=== PATIENT | male | born 1930 | race Caucasian/White ===

== ENCOUNTER 2016-09-01 19:00 | Inpatient (IN) | payer MEDICARE, BC ==
[2016-09-01 19:00] VITALS: BMI 28.2
--- NOTE | 2016-09-01 20:54 | ED PDOC ---
HPI: General Adult Time Seen by Provider: 09/01/16 19:00 Chief Complaint (Nursing): Weakness/Neurological Deficit Chief Complaint (Provider): Tachycardia/Weakness History Per: Family (patient's ) History/Exam Limitations: no limitations Additional Complaint(s): 19:43 Pedrito Byrnes is an 85 year old cigar-smoking male with a history of CHF, diabetes, atrial fibrillation, pedal edema, hypertension, CAD, and a blood clot on his lung, along with a surgical history of throat surgery, double hernia, double hip replacements, and a knee replacement, that is accompanied by his , and presents to the ED after becoming tachycardic earlier today at a rehabilitation facility. He was given 4 baby aspirin, but there was no change in his state, and so he was brought to the ED. Patient's also states that he began to have a cough around 10 days ago, and was prescribed antibiotics for it. However, the patient is also on "water pills," because his body is "filled with fluids," and the combination of the antibiotics with his previous medications caused both of his legs to become extremely swollen, and he has since developed blisters on his legs that are now in the process of healing. He has been unable to put any weight on his feet, and has not been eating for two days. Patient also takes medication for his low blood pressure. pt also has decreased apetitei the last few days. PMD: Yevgeniy Lora I Past Medical History Reviewed: Historical Data, Nursing Documentation, Vital Signs Vital Signs: Last Vital Signs Temp 97.9 F 09/03/16 16:49 Pulse 72 09/03/16 16:49 Resp 20 09/03/16 16:49 BP 94/59 L 09/03/16 16:49 Pulse Ox 95 09/03/16 18:27 - Medical History PMH: Arthritis, Atrial Fibrillation, Benign Prostatic Hyperplasia, CHF, COPD, Diabetes (type II), HTN, Peripheral Edema Denies: HIV, Kidney Stones, Chronic Kidney Disease - Surgical History Surgical History: Hernia Repair - Family History Family History: States: Unknown Family Hx - Home Medications Home Medications: Ambulatory Orders Medication Instructions Recorded Acetaminophen [Tylenol 325mg tab] 650 mg PO Q4 PRN 09/02/16 Albuterol/Ipratropium [Duoneb 3 3 ml INH QID 09/02/16 mg/0.5 mg (3 ml) UD] Bisacodyl [Dulcolax] 10 mg ID Q72 PRN 09/02/16 Ergocalciferol (Vitamin D2) 50,000 units PO QWK 09/02/16 [Vitamin D2] Finasteride [Proscar] 5 mg PO DAILY 09/02/16 Furosemide [Lasix] 20 mg PO DAILY 09/02/16 Magnesium Hydroxide [Milk Of 30 ml PO HS PRN 09/02/16 Magnesia] Metoprolol Tartrate [Lopressor] 12.5 mg PO Q12 09/02/16 Midodrine [Proamatine] 2.5 mg PO TID 09/02/16 Pantoprazole Sodium [Protonix] 40 mg PO DAILY 09/02/16 SITagliptin [Januvia] 50 mg PO DAILY 09/02/16 Sennosides [Senna] 17.2 mg PO HS 09/02/16 Sucralfate [Carafate Oral Susp] 10 ml PO DAILY 09/02/16 Tamsulosin [Flomax] 0.4 mg PO HS 09/02/16 - Allergies Allergies/Adverse Reactions: Allergies Allergy/AdvReac Type Severity Reaction Status Date / Time No Known Allergies Allergy Verified 07/26/16 16:50 Review of Systems Constitutional: Positive for: Weakness Cardiovascular: Positive for: Edema (bilateral pedal edema), Other (tachycardia , reported HR of 153 BPM this morning) Respiratory: Positive for: Cough (x10 days) Skin: Positive for: Other (blisters on lower legs bilaterally) Physical Exam - Reviewed Nursing Documentation Reviewed: Yes Vital Signs Reviewed: Yes - Physical Exam Appears: Positive for: Non-toxic, Uncomfortable Head Exam: Positive for: ATRAUMATIC, NORMOCEPHALIC Skin: Positive for: Normal Color, Warm, Dry Cardiovascular/Chest: Positive for: Tachycardia Respiratory: Positive for: Decreased Breath Sounds Gastrointestinal/Abdominal: Positive for: Soft. Negative for: Tenderness Extremity: Positive for: Pedal Edema (bilaterally), Other (one nickel sized blister on lower left leg, has yellowish discharge; two blisters on lower right leg, both slightly yellowish discharge; left arm is wet to the touch) Neurologic/Psych: Positive for: Alert, Oriented Comments: -Skin: Stage 1 redness sacral area ,and open excoriation around the groin - Laboratory Results Result Diagrams: 09/01/16 21:00 09/01/16 21:00 - ECG O2 Sat by Pulse Oximetry: 95 (RA) Pulse Ox Interpretation: Normal Medical Decision Making Medical Decision Makin:41 Initial Impression: rapid atrial fibrillation, decrease apetite Initial Plan: * CBC * CMP * BNP * PT/INR * Troponin * Reevaluation 22:16 Evaluated labs, troponin is elevated, bnp elevated. Spoke to PMD Dr. Lora, agreed to have patient admitted to hospital under his care. will consult pts green lumber grader Dr. Gomes. Clinical Impression: Rapid Atrial Fibrillation however blood pressure borderline and pulse has come down to low 100s on its own. therefore will hold off on cardizem. called dR Gomes twice. no response. 02:34 Podiatry consult ordered, will see pt in the morning. 02:42 CXR shows improvement compared to prior imaging done on 08/14/2016 explained to pts daughter the situation and plan. answered all her questions. Scribe Attestation: Documented by Ronel Medina, acting as a scribe for Elisabet Dawson MD. Provider Scribe Attestation: All medical record entries made by the Scribe were at my direction and personally dictated by me. I have reviewed the chart and agree that the record accurately reflects my personal performance of the history, physical exam, medical decision making, and the department course for this patient. I have also personally directed, reviewed, and agree with the discharge instructions and disposition. Disposition - Clinical Impression Clinical Impression: Rapid atrial fibrillation - Patient ED Disposition Is Patient to be Admitted: Yes Counseled Patient/Family Regarding: Studies Performed, Diagnosis - Disposition Disposition Time: 21:00 Condition: STABLE
[2016-09-01 21:43] LABS: BASO # 0.1 K/uL (0.0-0.2); BASO % 1.5 % (0.0-2.0); EOS # 0.1 K/uL (0.0-0.7); EOS % 1.2 % (0.0-4.0); HEMATOCRIT 43.9 % (35.0-51.0); LYMPH % 14.4 % (20.0-40.0); MEAN CORPUSCULAR HEMOGLOBIN 25.4 pg (27.0-31.0); MEAN CORPUSCULAR HGB CONC 31.8 g/dL (33.0-37.0); MEAN PLATELET VOLUME 7.9 fl (7.2-11.7); MONO # 0.5 K/uL (0.0-0.8); MONO % 7.3 % (0.0-10.0); NEUT # 5.4 K/uL (1.8-7.0); NEUT % 75.6 % (50.0-75.0); NRBC % 0.2 % (0.0-0.0); WHITE BLOOD COUNT 7.1 K/uL (4.8-10.8)
[2016-09-01 21:53] LABS: ALB/GLOB RATIO 0.9 (1.0-2.1); BILIRUBIN,TOTAL 2.7 mg/dl (0.2-1.3); CALCIUM 8.8 mg/dL (8.4-10.2); POTASSIUM 4.8 MMOL/L (3.6-5.0); TOTAL PROTEIN 6.5 G/DL (6.3-8.2)
[2016-09-01 22:10] LABS: TROPONIN I 0.247 ng/mL (0.00-0.120)
[2016-09-01 23:24] LABS: RBC URINE < 1 /hpf (0-3); URINE BACTERIA FEW (<OCC); URINE BILIRUBIN NEGATIVE (NEGATIVE); URINE BLOOD NEGATIVE (NEGATIVE); URINE COLOR AMBER (YELLOW); URINE GLUCOSE (UA) NEG (Normal); URINE KETONE NEGATIVE (NEGATIVE); URINE LEUKOCYTE ESTERASE NEG Leu/uL (Negative); URINE PROTEIN NEGATIVE (NEGATIVE); URINE UROBILINOGEN 0.2-1.0 mg/dL (0.2-1.0); WBC URINE 2 /hpf (0-5)
--- NOTE | 2016-09-02 05:54 | CP.PCM.PCO ---
Physician Communication Note - Physician Communication Note Physician Communication Note: stated patient is DNR and is requesting Hospice evaluation
[2016-09-02] MEDS ORDERED: Magnesium Hydroxide Susp 30 ml UD PO PRN (07:16)
[2016-09-02] MEDS ORDERED: Ergocalciferol 50,000 Intl Units Cap PO SCH (07:30)
--- NOTE | 2016-09-02 07:46 | CARD ---
APPROVED REPORT EKG Measurement Heart [id number] <Conclusion> Atrial fibrillation with rapid ventricular response Left bundle branch block Abnormal ECG
[2016-09-02] MEDS: Albuterol-Ipratrop 3 mg / 0.5 (3 ml) UD INH SCH ×4 (07:59→19:29)
--- NOTE | 2016-09-02 08:58 | CP.PCM.CON ---
History of Present Illness - History of Present Illness History of Present Illness: 85 year old male patient with PMHx of CHF, atrial fibrillation, HTN, DMII was seen at bedside ICU this morning after request for podiatry consultation. Patient was sleeping in bed with his by bedside. Patient's states that he was transferred from rehabilitation facility yesterday because his heart rate went up to 150 and could not be controlled at the rehab facility. She also states that the ulceration to bilateral legs have been improving in terms of size over the few weeks. Patient denies of any trauma to legs bilaterally. Patient denies of any N/V/F/C or SOB today Past Patient History - Past Medical History & Family History Past Medical History?: Yes - Past Social History Smoking Status: Light Smoker < 10 Cigarettes Daily - CARDIAC Hx Atrial Fibrillation: Yes Hx Congestive Heart Failure: Yes Hx Hypertension: Yes Hx Peripheral Edema: Yes - PULMONARY Hx Chronic Obstructive Pulmonary Disease (COPD): Yes - NEUROLOGICAL Hx Neurological Disorder: No - HEENT Hx HEENT Problems: Yes Other/Comment: wears glasses for reading - RENAL Hx Chronic Kidney Disease: No Hx Kidney Stones: No - ENDOCRINE/METABOLIC Hx Endocrine Disorders: Yes - HEMATOLOGICAL/ONCOLOGICAL Hx Human Immunodeficiency Virus (HIV): No - INTEGUMENTARY Hx Dermatological Problems: Yes - MUSCULOSKELETAL/RHEUMATOLOGICAL Hx Falls: Yes - GASTROINTESTINAL Hx Gastrointestinal Disorders: Yes Hx Constipation: Yes Hx Gastroesophageal Reflux: Yes - GENITOURINARY/GYNECOLOGICAL Hx Genitourinary Disorders: Yes - PSYCHIATRIC Hx Substance Use: No - SURGICAL HISTORY Hx Surgeries: Yes Hx Cardiac Catheterization: Yes (No stents placed) Hx Herniorrhaphy: Yes Hx Joint Replacement: Yes (Bilateral Hips and Right Knee) Hx Orthopedic Surgery: Yes Other/Comment: Hx Throat surgery (removal of small, benign mass)Hx. hernia repair x 2 - ANESTHESIA Hx Anesthesia: Yes Hx Anesthesia Reactions: No Hx Malignant Hyperthermia: No Meds Allergies/Adverse Reactions: Allergies Allergy/AdvReac Type Severity Reaction Status Date / Time No Known Allergies Allergy Verified 07/26/16 16:50 - Medications Medications: Current Medications Acetaminophen (Tylenol 325mg Tab) 650 mg PO Q4 PRN PRN Reason: MILD PAIN or Temp above 101 Albuterol/Ipratropium (Duoneb 3 Mg/0.5 Mg (3 Ml) Ud) 3 ml INH QID [facility] Last Admin: 09/02/16 07:59 Dose: 3 ml Bisacodyl (Dulcolax) 10 mg [place] Q72 PRN PRN Reason: NO BM AFTER 3 DAYS Ergocalciferol (Drisdol 50,000 Intl Units Cap) 1 cap PO QWK [facility] Finasteride (Proscar) 5 mg PO DAILY [facility] Furosemide (Lasix) 20 mg PO DAILY [facility] Magnesium Hydroxide (Milk Of Magnesia) 30 ml PO HS PRN PRN Reason: CONSTIPATION Metoprolol Tartrate (Lopressor) 12.5 mg PO Q12 [facility] Midodrine (Proamatine) 2.5 mg PO TID [facility] Pantoprazole Sodium (Protonix Ec Tab) 40 mg PO DAILY [facility] Sennosides (Senokot Tab) 17.2 mg PO HS [facility] Sitagliptin Phosphate (Januvia) 50 mg PO DAILY [facility] Sucralfate (Carafate Oral Susp) 1 gm PO ACL [facility] Tamsulosin HCl (Flomax) 0.4 mg PO HS [facility] Physical Exam - Extremities Exam Additional comments: Bilateral lower extremity exam DERM: RIGHT:Two open venous stasis ulcerations noted to medial and posterior aspect of right leg; measuring 4cmx 2cmx 0.3cm for medial ulcer, and 1.5cm x 1.5cm x 0.3cm for posterior ulcer. Wound bases appear mix of granular and fibrotic. (50/50) Mild erythema noted around the blisters. Dark discoloration to skin noted to legs bilaterally consistent with venous stasis dermatitis. No sign of acute infection is noted. No pus drainage, no probe to bone. Moderate serous drainage is noted from the medial ulcer. LEFT:One open venous stasis ulceration noted to medial aspect of Left leg measuring 1.5cm x 1.5cm x0.3cm. Wound bases appear mix of granular and fibrotic. (50/50) Dark discoloration to skin noted to legs bilaterally consistent with venous stasis dermatitis. No sign of acute infection is noted. No pus drainage, no probe to bone. VASC: Non-palpable DP and PT noted bilaterally 2nd to swelling. Moderate pitting edema noted to bilateral lower extremities ORTHO: Pain upon palpation to joints distal to ankle joint NEURO: Gross sensation intact bilaterally. - Neurological Exam Neurological exam: Alert, Oriented x3 - Psychiatric Exam Psychiatric exam: Normal Affect, Normal Mood - Skin Skin Exam: Normal Color, Warm Results - Vital Signs Recent Vital Signs: Last Vital Signs Temp 97.4 F L 09/02/16 08:00 Pulse 115 H 09/02/16 08:32 Resp 13 09/02/16 08:00 BP 99/60 L 09/02/16 08:00 Pulse Ox 96 09/02/16 08:00 - Labs Result Diagrams: 09/01/16 21:00 09/01/16 21:00 Labs: Laboratory Results - last 24 hr 09/01/16 09/01/16 22:40 22:45 POC Glucose (mg/dL) 153 H Urine Color Urine Clarity Clear Urine pH 6.0 Ur Specific [place] 1.016 Urine Protein Negative Urine Glucose (UA) Neg Urine Ketones Negative Urine Blood Negative Urine Nitrate Negative Urine Bilirubin Negative Urine Urobilinogen 0.2-1.0 Ur Leukocyte Esterase Neg Urine RBC (Auto) < 1 Urine Microscopic WBC 2 Ur Squamous Epith Cells < 1 Urine Bacteria Few H Hyaline Casts 6-10 H Assessment & Plan - Assessment and Plan (Free Text) Assessment: 85 year old male patient with PMHx of CHF, atrial fibrillation, HTN, DMII presents with bilateral venous stasis ulcerations Plan: Patient was seen, evaluated and treated with all questions and concerns addressed Discussed in detail with Dr. Nagy Labs and vitals reviewed; afebrile Wound culture was taken from the draining ulcer of right leg. Dressing consisted of ABD, DSD, WALI applied to B/L lower extremity Keep bilateral legs elevated in bed Podiatry will continue to follow In-house
[2016-09-02] MEDS: Pantoprazole 40 mg EC Tab PO SCH (10:16)
[2016-09-02] MEDS ORDERED: Digoxin 0.05 mg/mL Elixir 5mL PO ONE (10:30)
--- NOTE | 2016-09-02 11:18 | CP.PCM.CON ---
History of Present Illness - History of Present Illness History of Present Illness: THE PATIENT IS AN 85 YEAR OLD MALE KNOWN TO ME. HE HAS A HISTORY OF CARDIAC AMYLIOD WITH CHRONIC ATRIAL FIBRILLATION/FLUTTER, SYSTOLIC AND DIASTOLIC CHF WITH A LVEF OF ~ 30%, RECENT PULMONARY EMBOLUS, HYPERTENSION, COPD, RECENT PNEUMONIA AND LE VENOUS INSUFF WITH LEG EDEMA AND RECURRENT CELLULITIS. HE HAD TACHYCARDIA AND WAS SENT FROM THE [facility] TO THE ER AND ADMITTED. CARDIOLOGY WAS ASKED TO SEE HIM. Past Patient History - Past Medical History & Family History Past Medical History?: Yes - Past Social History Smoking Status: Light Smoker < 10 Cigarettes Daily - CARDIAC Hx Atrial Fibrillation: Yes Hx Congestive Heart Failure: Yes Hx Hypertension: Yes Hx Peripheral Edema: Yes - PULMONARY Hx Chronic Obstructive Pulmonary Disease (COPD): Yes - NEUROLOGICAL Hx Neurological Disorder: No - HEENT Hx HEENT Problems: Yes Other/Comment: wears glasses for reading - RENAL Hx Chronic Kidney Disease: No Hx Kidney Stones: No - ENDOCRINE/METABOLIC Hx Endocrine Disorders: Yes - HEMATOLOGICAL/ONCOLOGICAL Hx Human Immunodeficiency Virus (HIV): No - INTEGUMENTARY Hx Dermatological Problems: Yes - MUSCULOSKELETAL/RHEUMATOLOGICAL Hx Falls: Yes - GASTROINTESTINAL Hx Gastrointestinal Disorders: Yes Hx Constipation: Yes Hx Gastroesophageal Reflux: Yes - GENITOURINARY/GYNECOLOGICAL Hx Genitourinary Disorders: Yes - PSYCHIATRIC Hx Substance Use: No - SURGICAL HISTORY Hx Surgeries: Yes Hx Cardiac Catheterization: Yes (No stents placed) Hx Herniorrhaphy: Yes Hx Joint Replacement: Yes (Bilateral Hips and Right Knee) Hx Orthopedic Surgery: Yes Other/Comment: Hx Throat surgery (removal of small, benign mass)Hx. hernia repair x 2 - ANESTHESIA Hx Anesthesia: Yes Hx Anesthesia Reactions: No Hx Malignant Hyperthermia: No Meds Allergies/Adverse Reactions: Allergies Allergy/AdvReac Type Severity Reaction Status Date / Time No Known Allergies Allergy Verified 07/26/16 16:50 - Medications Medications: Current Medications Acetaminophen (Tylenol 325mg Tab) 650 mg PO Q4 PRN PRN Reason: MILD PAIN or Temp above 101 Albuterol/Ipratropium (Duoneb 3 Mg/0.5 Mg (3 Ml) Ud) 3 ml INH QID ABDI Last Admin: 09/02/16 07:59 Dose: 3 ml Bisacodyl (Dulcolax) 10 mg [place] Q72 PRN PRN Reason: NO BM AFTER 3 DAYS Digoxin (Lanoxin) 0.25 mg PO ONCE ONE Stop: 09/02/16 14:01 Ergocalciferol (Drisdol 50,000 Intl Units Cap) 1 cap PO QWK [facility] Finasteride (Proscar) 5 mg PO DAILY [facility] Last Admin: 09/02/16 10:15 Dose: 5 mg Magnesium Hydroxide (Milk Of Magnesia) 30 ml PO HS PRN PRN Reason: CONSTIPATION Metoprolol Tartrate (Lopressor) 12.5 mg PO Q12 [facility] Last Admin: 09/02/16 10:14 Dose: 12.5 mg Midodrine (Proamatine) 2.5 mg PO TID [facility] Last Admin: 09/02/16 10:15 Dose: 2.5 mg Pantoprazole Sodium (Protonix Ec Tab) 40 mg PO DAILY [facility] Last Admin: 09/02/16 10:16 Dose: 40 mg Sennosides (Senokot Tab) 17.2 mg PO HS [facility] Sitagliptin Phosphate (Januvia) 50 mg PO DAILY [facility] Last Admin: 09/02/16 10:14 Dose: 50 mg Sucralfate (Carafate Oral Susp) 1 gm PO ACL [facility] Tamsulosin HCl (Flomax) 0.4 mg PO HS [facility] Physical Exam - Respiratory Exam Respiratory Exam: Decreased Breath Sounds - Cardiovascular Exam Cardiovascular Exam: Tachycardia, Irregular Rhythm, +S2 - Extremities Exam Extremities exam: Positive for: pedal edema - Additional Findings Additional findings: EKG ATRIAL FLUTTER WITH VARIABLE AV RESPONSE RATE MILDLY ELEVATED TROPONINS(CHRONICALLY ELEVATED) ELEVATED PBNP(CHRONICALLY ELEVATED) Results - Vital Signs Recent Vital Signs: Last Vital Signs Temp 97.4 F L 09/02/16 08:00 Pulse 121 H 09/02/16 10:14 Resp 13 09/02/16 08:00 BP 109/69 09/02/16 10:14 Pulse Ox 96 09/02/16 08:00 - Labs Result Diagrams: 09/01/16 21:00 09/01/16 21:00 Labs: Laboratory Results - last 24 hr 09/01/16 09/01/16 09/02/16 22:40 22:45 08:25 POC Glucose (mg/dL) 153 H Troponin I 0.2430 H* Urine Color Urine Clarity Clear Urine pH 6.0 Ur Specific [place] 1.016 Urine Protein Negative Urine Glucose (UA) Neg Urine Ketones Negative Urine Blood Negative Urine Nitrate Negative Urine Bilirubin Negative Urine Urobilinogen 0.2-1.0 Ur Leukocyte Esterase Neg Urine RBC (Auto) < 1 Urine Microscopic WBC 2 Ur Squamous Epith Cells < 1 Urine Bacteria Few H Hyaline Casts 6-10 H Assessment & Plan - Assessment and Plan (Free Text) Assessment: CARDIAC AMYLOID WITH CHRONIC ATRIAL FLUTTER AND RECURRENT COMBINED SYSTOLIC AND DIASTOLIC CHF CHRONICALLY ELEVATED TROPONIN AND PBNP LEVELS COPD WITH RECENT PNEUMONIA RECENT PE HYPERTENSION HISTORY Plan: THE HAD DECIDED TO MAKE HIM A DNR/DNI CODE STATUS AND IS THINKING ABOUT HOSPICE CARE METOPROLOL, DIGOXIN, FUROSEMIDE PT DISCUSSED WITH THE , DR TSE AND THE NURSING STAFF
[2016-09-02] MEDS: Sucralfate 1 gm/10 ml Oral Susp UD PO SCH (12:22)
[2016-09-02] MEDS ORDERED: Sodium Chloride 0.45% 1,000 ML IV SCH (13:00)
--- NOTE | 2016-09-02 13:43 | RAD ---
Indication: Cough Portable chest radiograph Comparison: Chest x-ray performed 08/14/16 Findings: Cardiomegaly. Atherosclerotic calcifications of the aorta. Small tril-[id number]-right pleural effusions. Bibasilar atelectasis or infiltrates. No definite pneumothorax. Mild pulmonary venous congestion. No definite pneumothorax. Please note that chest x-ray has limited sensitivity for the detection of pulmonary masses. Osseous demineralization. Degenerative changes of the spine and shoulders. 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 Impression: Cardiomegaly. Small owlv-[id number]-[id number]-right pleural effusions. Bibasilar atelectasis or infiltrates. Mild pulmonary venous congestion.
[2016-09-02] MEDS ORDERED: Digoxin 250 mcg (0.25 mg) Tab PO ONE (14:00)
--- NOTE | 2016-09-02 15:08 | HP ---
The patient is an 85-year-old male who was transferred from [facility] to the [facility] because of rapid atrial fibrillation. He is well known to me from prior admissions and from [facility] in the office for several years. PAST MEDICAL HISTORY: Cardiac amyloidosis, cardiac arrhythmia with paroxysmal atrial fibrillation wi th controlled ventricular response, arthritis, hip replacement, diabetes mellitus, hypertension, cell ulitis of lower extremities without pedal edema, chronic obstructive pulmonary disease. He also has chronic elevation of troponin probably due to cardiomyopathy and mild renal insufficiency. He also h as had a ____ and recently pulmonary emboli. FAMILY HISTORY: Noncontributory. SOCIAL HISTORY: He lives at home with , smokes cigars and drinks alcohol occasionally. REVIEW OF SYSTEMS: Essentially remarkable for swelling of the legs, shortness of breath, exercise in tolerance and generalized malaise. PHYSICAL EXAMINATION: GENERAL: The patient is weak and looks exhausted. VITAL SIGNS: Blood pressure 99/60 with a pulse 115 to 120 per minute, irregular. Temperature 97.4 d egrees Fahrenheit, respiratory rate 23 per minute, O2 sat 96% on nasal cannula oxygen. SKIN: Shows poor turgor with stasis changes of the lower extremities and a stage I sacral decubitus ulcer. HEENT: Pupils are equal, react to light and accommodation. Mouth shows fair hygiene. NECK: JVP flat. LUNGS: Poor aeration with basal dullness and scattered rales. HEART: Irregular rhythm due to atrial fibrillation with apex displaced to the left mid axillary line . ABDOMEN: Soft, nontender, no organomegaly. EXTREMITIES: There is 3+ pitting pedal edema with stasis changes of the lower extremities and cellul itis with blisters. CENTRAL NERVOUS SYSTEM: Could not be evaluated properly except for the fact that the patient is easi ly arousable and communicating, but appears very weak and lethargic. LABORATORY DATA: Remarkable for WBC of 7.1, hemoglobin 13.9, platelet count 156,000. Sodium 133, po tassium 4.8, BUN of 60, creatinine 1.4. Troponin 0.2470. ProBNP 35,800. EKG: Atrial fibrillation with rapid ventricular response, left-axis deviation, left bundle branch bl ock. Chest x-ray official report pending but shows cardiomegaly with bilateral small pleural effusio ns read by me. IMPRESSION: Atrial fibrillation with rapid ventricular response, history of cardiac amyloidosis mild congestive heart failure with bilateral small pleural effusions, chronically elevated troponin level s, probably secondary to cardiac amyloidosis, mild renal insufficiency, pedal edema with cellulitis o f lower extremities, history of pulmonary embolism, history of hypertension, now hypotensive with lionel betes mellitus type 2, poorly controlled and generalized debility. The case was discussed with the patient and the . The does not want aggressive intervention . She has advocated for hospice care. The plan would be to refer the patient for hospice evaluation . Cardiology evaluation already called to properly control atrial fibrillation. His prognosis is ex tremely guarded to poor. We will continue therapy as ordered. Incidentally noted the patient has hematuria, which is probably traumatic from Rogers insertion, compo unded with the fact that the patient has been on Coumadin anticoagulation for atrial fibrillation. Yevgeniy Lora MD cc: [id number] TT: 09/02/2016 15:07:30 an
[2016-09-02] MEDS ORDERED: Lidocaine 2% Jelly (Uro-Jet) TOP ONE (15:45)
--- NOTE | 2016-09-02 21:29 | CON ---
DATE: 09/02/2016 This is a gentleman who I was called to see because of gross hematuria. The patient is in the ICU. Apparently up until this time he was voiding on his own. Urine was always clear according to family. He came here and he had several intermittent catheterizations for evaluation of urinary retention a nd on the third attempt with the catheter it apparently became very bloody and with clots, so at the time I am evaluating him, he has a #16 2-way Rogers inserted with clots coming out of the urethral cat heter and I do not suspect that his bladder would be free of clots. I decided at this time to change the 2-way Rogers catheter for a #22 3-way. I was able to insert that catheter in without significant difficulty and then I irrigated the bladder. There were a lot of clots within the bladder that I ir rigated out. The patient was on anticoagulant therapy. He is also currently receiving fresh frozen plasma. He has severe edema of all extremities so I think that for now continuous bladder irrigation will be the way to maintain stability in the gross hematuria. I suspect that it will clear up and I think that probably the source might have been some traumatic catheterization, but in essence, at th is point it appears to be clearing. Gladys Chang MD cc: [id number] TT: 09/02/2016 21:29:12 Confirmation # [id number] Dictation # [id number] kurtis
[2016-09-03] MEDS: Albuterol-Ipratrop 3 mg / 0.5 (3 ml) UD INH SCH ×4 (07:35→19:31)
[2016-09-03] MEDS: Pantoprazole 40 mg EC Tab PO SCH (08:48)
--- NOTE | 2016-09-03 08:56 | CP.PCM.PN ---
Subjective - Date & Time of Evaluation Date of Evaluation: 09/03/16 Time of Evaluation: 07:30 - Subjective Subjective: 85 year old male patient with PMHx of CHF, atrial fibrillation, HTN, DMII was seen at bedside ICU this morning concerning stable venous stasis bilateral ulcerations. Patient was resting comfortably in bed this morning with his by bedside. Patient's wound dressing was wet today for right lower extremity, dry for left. Patient denies of any acute overnight distress. Patient denies of any N/V/F/C or SOB today Objective - Vital Signs/Intake and Output Vital Signs (last 24 hours): Temp Pulse Resp BP Pulse Ox 98.3 F 88 15 97/66 L 96 09/03/16 08:00 09/03/16 08:48 09/03/16 08:00 09/03/16 08:48 09/03/16 08:00 Intake and Output: 09/03/16 09/03/16 06:59 18:59 Intake Total 510 Output Total 900 Balance -390 - Medications Medications: Current Medications Acetaminophen (Tylenol 325mg Tab) 650 mg PO Q4 PRN PRN Reason: MILD PAIN or Temp above 101 Albuterol/Ipratropium (Duoneb 3 Mg/0.5 Mg (3 Ml) Ud) 3 ml INH RQID [facility] Last Admin: 09/03/16 07:35 Dose: 3 ml Bisacodyl (Dulcolax) 10 mg [place] Q72 PRN PRN Reason: NO BM AFTER 3 DAYS Collagenase (Santyl) 1 applic TOP DAILY [facility] Ergocalciferol (Drisdol 50,000 Intl Units Cap) 1 cap PO QWK [facility] Finasteride (Proscar) 5 mg PO DAILY [facility] Last Admin: 09/03/16 08:48 Dose: 5 mg Sodium Chloride (Sodium Chloride 0.45%) 1,000 mls @ 40 mls/hr IV .Q24H [facility] Stop: 09/03/16 13:01 Last Admin: 09/02/16 13:03 Dose: 40 mls/hr Magnesium Hydroxide (Milk Of Magnesia) 30 ml PO HS PRN PRN Reason: CONSTIPATION Metoprolol Tartrate (Lopressor) 12.5 mg PO Q12 [facility] Last Admin: 09/03/16 08:48 Dose: 12.5 mg Midodrine (Proamatine) 2.5 mg PO TID [facility] Last Admin: 09/03/16 08:48 Dose: 2.5 mg Pantoprazole Sodium (Protonix Ec Tab) 40 mg PO DAILY [facility] Last Admin: 09/03/16 08:48 Dose: 40 mg Sennosides (Senokot Tab) 17.2 mg PO HS [facility] Last Admin: 09/02/16 21:19 Dose: 17.2 mg Sitagliptin Phosphate (Januvia) 50 mg PO DAILY [facility] Last Admin: 09/03/16 08:47 Dose: 50 mg Sucralfate (Carafate Oral Susp) 1 gm PO ACL [facility] Last Admin: 09/02/16 12:22 Dose: 1 gm Tamsulosin HCl (Flomax) 0.4 mg PO HS [facility] Last Admin: 09/02/16 21:42 Dose: 0.4 mg - Labs Labs: PT 26.9 SECONDS (9.6-11.2) H 09/01/16 21:04 INR 2.59 (0.92-1.08) H 09/01/16 21:04 - Constitutional Appears: No Acute Distress - Extremities Exam Additional comments: Bilateral lower extremity exam DERM: RIGHT: Two open venous stasis ulcerations noted to medial and posterior aspect of right leg; measuring 4cmx 2cmx 0.3cm for medial ulcer, and 1.5cm x 1.5cm x 0.3cm for posterior ulcer. Wound bases appear mix of granular and fibrotic. (50/50) Mild erythema noted around the blisters. Dark discoloration to skin noted to legs bilaterally consistent with venous stasis dermatitis. No sign of acute infection is noted. No pus drainage, no probe to bone. Moderate serous drainage is noted from the medial ulcer. LEFT:One open venous stasis ulceration noted to medial aspect of Left leg measuring 1.5cm x 1.5cm x0.3cm. Wound bases appear mix of granular and fibrotic. (50/50) Dark discoloration to skin noted to legs bilaterally consistent with venous stasis dermatitis. No sign of acute infection is noted. No pus drainage, no probe to bone. VASC: Non-palpable DP and PT noted bilaterally 2nd to swelling. Moderate pitting edema noted to bilateral lower extremities ORTHO: Pain upon palpation to joints distal to ankle joint NEURO: Gross sensation intact bilaterally. - Neurological Exam Neurological Exam: Awake, Oriented x3 - Psychiatric Exam Psychiatric exam: Normal Affect, Normal Mood - Skin Skin Exam: Normal Color, Warm Assessment and Plan - Assessment and Plan (Free Text) Assessment: 85 year old male patient with stable venous stasis ulcerations to bilateral legs Plan: Patient was seen, evaluated and treated with all questions and concerns addressed Discussed in detail with Dr. Nagy Labs and vitals reviewed; afebrile Wound culture from right leg taken 09/02/16 pending result Dressing consisted of ABD, DSD, WALI applied to B/L lower extremity Santyl ordered Keep bilateral legs elevated in bed Podiatry will continue to follow In-house
--- NOTE | 2016-09-03 09:21 | CP.PCM.PN ---
Subjective - Date & Time of Evaluation Date of Evaluation: 09/03/16 Time of Evaluation: 09:24 - Subjective Subjective: STILL WEAK BUT EASILY AROUSABLE AT BEDSIDE AND CASE DISCUSSED WITH HER SHE ONLY WANTS PALLIATIVE CARE HEMATURIA IMPROVED WITH PRESENT RX Objective - Vital Signs/Intake and Output Vital Signs (last 24 hours): Temp Pulse Resp BP Pulse Ox 98.3 F 88 15 97/66 L 96 09/03/16 08:00 09/03/16 08:48 09/03/16 08:00 09/03/16 08:48 09/03/16 08:00 Intake and Output: 09/03/16 09/03/16 06:59 18:59 Intake Total 510 Output Total 900 Balance -390 - Medications Medications: Current Medications Acetaminophen (Tylenol 325mg Tab) 650 mg PO Q4 PRN PRN Reason: MILD PAIN or Temp above 101 Albuterol/Ipratropium (Duoneb 3 Mg/0.5 Mg (3 Ml) Ud) 3 ml INH RQID [facility] Last Admin: 09/03/16 07:35 Dose: 3 ml Bisacodyl (Dulcolax) 10 mg [place] Q72 PRN PRN Reason: NO BM AFTER 3 DAYS Collagenase (Santyl) 1 applic TOP DAILY [facility] Ergocalciferol (Drisdol 50,000 Intl Units Cap) 1 cap PO QWK [facility] Finasteride (Proscar) 5 mg PO DAILY [facility] Last Admin: 09/03/16 08:48 Dose: 5 mg Magnesium Hydroxide (Milk Of Magnesia) 30 ml PO HS PRN PRN Reason: CONSTIPATION Metoprolol Tartrate (Lopressor) 12.5 mg PO Q12 [facility] Last Admin: 09/03/16 08:48 Dose: 12.5 mg Midodrine (Proamatine) 2.5 mg PO TID [facility] Last Admin: 09/03/16 08:48 Dose: 2.5 mg Pantoprazole Sodium (Protonix Ec Tab) 40 mg PO DAILY [facility] Last Admin: 09/03/16 08:48 Dose: 40 mg Sennosides (Senokot Tab) 17.2 mg PO HS [facility] Last Admin: 09/02/16 21:19 Dose: 17.2 mg Sitagliptin Phosphate (Januvia) 50 mg PO DAILY [facility] Last Admin: 09/03/16 08:47 Dose: 50 mg Sucralfate (Carafate Oral Susp) 1 gm PO ACL [facility] Last Admin: 09/02/16 12:22 Dose: 1 gm Tamsulosin HCl (Flomax) 0.4 mg PO HS [facility] Last Admin: 09/02/16 21:42 Dose: 0.4 mg - Labs Labs: PT 26.9 SECONDS (9.6-11.2) H 09/01/16 21:04 INR 2.59 (0.92-1.08) H 09/01/16 21:04 - Constitutional Appears: Chronically Ill - Head Exam Head Exam: ATRAUMATIC, NORMAL INSPECTION, NORMOCEPHALIC - Eye Exam Eye Exam: EOMI, Normal appearance, PERRL Pupil Exam: NORMAL ACCOMODATION, PERRL - ENT Exam ENT Exam: Mucous Membranes Moist, Normal Exam - Neck Exam Neck Exam: Full ROM, Normal Inspection. absent: Lymphadenopathy - Respiratory Exam Respiratory Exam: Decreased Breath Sounds, Prolonged Expiratory Phase, Rales, NORMAL BREATHING PATTERN - Cardiovascular Exam Cardiovascular Exam: REGULAR RHYTHM, +S1, +S2. absent: Murmur - GI/Abdominal Exam GI & Abdominal Exam: Soft, Normal Bowel Sounds. absent: Tenderness - Rectal Exam Rectal Exam: NORMAL INSPECTION - Exam Additional comments: SCROTAL EDEMA - Extremities Exam Extremities Exam: Full ROM, Pedal Edema. absent: Joint Swelling - Back Exam Back Exam: NORMAL INSPECTION - Neurological Exam Neurological Exam: CN II-XII Intact, Oriented x3 - Psychiatric Exam Psychiatric exam: Normal Affect, Normal Mood - Skin Skin Exam: Dry, Intact, Normal Color, Warm Assessment and Plan - Assessment and Plan (Free Text) Assessment: CARDIOMYOPATHY CHF PNEUMONIA ASHD DM HEMATURIA HYPOTENSION Plan: TRANSFER TO REGULAR FLOOR SUPPORTIVE RX
--- NOTE | 2016-09-03 10:03 | CP.PCM.PN ---
Subjective - Date & Time of Evaluation Date of Evaluation: 09/03/16 Time of Evaluation: 10:30 - Subjective Subjective: NO COMPLAINTS Objective - Vital Signs/Intake and Output Vital Signs (last 24 hours): Temp Pulse Resp BP Pulse Ox 98.3 F 88 15 97/66 L 96 09/03/16 08:00 09/03/16 08:48 09/03/16 08:00 09/03/16 08:48 09/03/16 08:00 Intake and Output: 09/03/16 09/03/16 06:59 18:59 Intake Total 510 Output Total 900 Balance -390 - Medications Medications: Current Medications Acetaminophen (Tylenol 325mg Tab) 650 mg PO Q4 PRN PRN Reason: MILD PAIN or Temp above 101 Acetylcysteine (Acetylcysteine 20%) 2 ml INH RBID [facility] Albuterol/Ipratropium (Duoneb 3 Mg/0.5 Mg (3 Ml) Ud) 3 ml INH RQID [facility] Last Admin: 09/03/16 07:35 Dose: 3 ml Bisacodyl (Dulcolax) 10 mg [place] Q72 PRN PRN Reason: NO BM AFTER 3 DAYS Collagenase (Santyl) 1 applic TOP DAILY [facility] Ergocalciferol (Drisdol 50,000 Intl Units Cap) 1 cap PO QWK [facility] Finasteride (Proscar) 5 mg PO DAILY [facility] Last Admin: 09/03/16 08:48 Dose: 5 mg Magnesium Hydroxide (Milk Of Magnesia) 30 ml PO HS PRN PRN Reason: CONSTIPATION Metoprolol Tartrate (Lopressor) 12.5 mg PO Q12 [facility] Last Admin: 09/03/16 08:48 Dose: 12.5 mg Midodrine (Proamatine) 2.5 mg PO TID [facility] Last Admin: 09/03/16 08:48 Dose: 2.5 mg Pantoprazole Sodium (Protonix Ec Tab) 40 mg PO DAILY [facility] Last Admin: 09/03/16 08:48 Dose: 40 mg Sennosides (Senokot Tab) 17.2 mg PO HS [facility] Last Admin: 09/02/16 21:19 Dose: 17.2 mg Sitagliptin Phosphate (Januvia) 50 mg PO DAILY [facility] Last Admin: 09/03/16 08:47 Dose: 50 mg Sucralfate (Carafate Oral Susp) 1 gm PO ACL [facility] Last Admin: 09/02/16 12:22 Dose: 1 gm Tamsulosin HCl (Flomax) 0.4 mg PO HS [facility] Last Admin: 09/02/16 21:42 Dose: 0.4 mg - Labs Labs: PT 26.9 SECONDS (9.6-11.2) H 09/01/16 21:04 INR 2.59 (0.92-1.08) H 09/01/16 21:04 - Respiratory Exam Respiratory Exam: Decreased Breath Sounds - Cardiovascular Exam Cardiovascular Exam: Irregular Rhythm, +S1, +S2 - Extremities Exam Extremities Exam: Pedal Edema - Additional Findings Additional findings: PORTFOLIO DIRECTOR ATRIAL FLUTTER WITH BETTER CONTROLLED HEART RATE Assessment and Plan - Assessment and Plan (Free Text) Assessment: AMYLOID HEART ATRIAL FLUTTER COPD Plan: CONTINUE METOPROLOL AND DIGOXIN
[2016-09-03] MEDS: Sucralfate 1 gm/10 ml Oral Susp UD PO SCH (11:30)
[2016-09-03] MEDS: Santyl Collagenase OINTMENT TOP SCH (13:41)
[2016-09-03] MEDS: Digoxin 125 mcg (0.125 mg) Tab PO SCH (13:54)
[2016-09-03] MEDS: Acetylcysteine 20% Inhal Soln (4ml) INH SCH (19:31)
[2016-09-04] MEDS: Albuterol-Ipratrop 3 mg / 0.5 (3 ml) UD INH SCH ×4 (07:30→20:15)
[2016-09-04] MEDS: Acetylcysteine 20% Inhal Soln (4ml) INH SCH ×2 (07:30→20:15)
--- NOTE | 2016-09-04 09:01 | CP.PCM.PN ---
Subjective - Date & Time of Evaluation Date of Evaluation: 09/04/16 Time of Evaluation: 07:30 - Subjective Subjective: 85 year old male patient with PMHx of CHF, atrial fibrillation, HTN, DMII was seen at bedside 6th floor this morning concerning stable venous stasis bilateral ulcerations. Patient was resting comfortably in bed this morning with his by bedside. Patient's wound dressing was wet today for right lower extremity, dry for left. Patient denies of any N/V/F/C or SOB today Objective - Vital Signs/Intake and Output Vital Signs (last 24 hours): Temp Pulse Resp BP Pulse Ox 98.1 F 49 L 20 126/68 98 09/04/16 08:37 09/04/16 08:37 09/04/16 08:37 09/04/16 08:37 09/04/16 08:37 Intake and Output: 09/04/16 09/04/16 06:59 18:59 Intake Total 50 Output Total 1250 Balance -1200 - Medications Medications: Current Medications Acetaminophen (Tylenol 325mg Tab) 650 mg PO Q4 PRN PRN Reason: MILD PAIN or Temp above 101 Acetylcysteine (Acetylcysteine 20%) 2 ml INH RBID [facility] Last Admin: 09/04/16 07:30 Dose: 2 ml Albuterol/Ipratropium (Duoneb 3 Mg/0.5 Mg (3 Ml) Ud) 3 ml INH RQID [facility] Last Admin: 09/04/16 07:30 Dose: 3 ml Bisacodyl (Dulcolax) 10 mg [place] Q72 PRN PRN Reason: NO BM AFTER 3 DAYS Collagenase (Santyl) 1 applic TOP DAILY [facility] Last Admin: 09/03/16 13:41 Dose: Not Given Digoxin (Lanoxin) 0.125 mg PO DAILY [facility] Last Admin: 09/03/16 13:54 Dose: 0.125 mg Ergocalciferol (Drisdol 50,000 Intl Units Cap) 1 cap PO QWK [facility] Finasteride (Proscar) 5 mg PO DAILY [facility] Last Admin: 09/03/16 08:48 Dose: 5 mg Magnesium Hydroxide (Milk Of Magnesia) 30 ml PO HS PRN PRN Reason: CONSTIPATION Metoprolol Tartrate (Lopressor) 12.5 mg PO Q12 [facility] Last Admin: 09/03/16 22:02 Dose: Not Given Midodrine (Proamatine) 2.5 mg PO TID [facility] [place] Last Admin: 09/03/16 17:13 Dose: 2.5 mg Pantoprazole Sodium (Protonix Ec Tab) 40 mg PO DAILY [facility] [place] Last Admin: 09/03/16 08:48 Dose: 40 mg Sennosides (Senokot Tab) 17.2 mg PO HS [facility] [place] Last Admin: 09/03/16 22:04 Dose: 17.2 mg Sitagliptin Phosphate (Januvia) 50 mg PO DAILY [facility] Last Admin: 09/03/16 08:47 Dose: 50 mg Sucralfate (Carafate Oral Susp) 1 gm PO ACL [facility] Last Admin: 09/03/16 11:30 Dose: 1 gm Tamsulosin HCl (Flomax) 0.4 mg PO HS [facility] Last Admin: 09/03/16 22:04 Dose: 0.4 mg - Labs Labs: PT 26.9 SECONDS (9.6-11.2) H 09/01/16 21:04 INR 2.59 (0.92-1.08) H 09/01/16 21:04 - Constitutional Appears: No Acute Distress - Extremities Exam Additional comments: Bilateral lower extremity exam DERM: RIGHT: Two open venous stasis ulcerations noted to medial and posterior aspect of right leg; measuring 4cmx 2cmx 0.3cm for medial ulcer, and 1.5cm x 1.5cm x 0.3cm for posterior ulcer. Wound bases appear mix of granular and fibrotic. (50/50) Mild erythema noted around the blisters. Dark discoloration to skin noted to legs bilaterally consistent with venous stasis dermatitis. No sign of acute infection is noted. No pus drainage, no probe to bone. Moderate serous drainage is noted from the medial ulcer. LEFT:One open venous stasis ulceration noted to medial aspect of Left leg measuring 1.5cm x 1.5cm x0.3cm. Wound bases appear mix of granular and fibrotic. (50/50) Dark discoloration to skin noted to legs bilaterally consistent with venous stasis dermatitis. No sign of acute infection is noted. No pus drainage, no probe to bone. VASC: Non-palpable DP and PT noted bilaterally 2nd to swelling. Moderate pitting edema noted to bilateral lower extremities ORTHO: Pain upon palpation to joints distal to ankle joint NEURO: Gross sensation intact bilaterally. - Neurological Exam Neurological Exam: Awake, Oriented x3 - Psychiatric Exam Psychiatric exam: Normal Affect, Normal Mood - Skin Skin Exam: Normal Color, Warm Assessment and Plan - Assessment and Plan (Free Text) Assessment: 85 year old male patient with stable venous stasis ulcerations to bilateral legs Plan: Patient was seen, evaluated and treated with all questions and concerns addressed Discussed in detail with Dr. Nagy Labs and vitals reviewed; afebrile Wound culture from right leg taken 09/02/16 pending result Dressing consisted of ABD, DSD, WALI applied to B/L lower extremity Santyl applied to distal ulcer of right leg. Santyl to be stopped after 4 days of use. Switch to Silvadene. Keep bilateral legs elevated in bed Podiatry will continue to follow In-house
[2016-09-04] MEDS: Digoxin 125 mcg (0.125 mg) Tab PO SCH (09:02)
[2016-09-04] MEDS: Pantoprazole 40 mg EC Tab PO SCH (09:02)
[2016-09-04] MEDS: Santyl Collagenase OINTMENT TOP SCH (09:04)
--- NOTE | 2016-09-04 09:22 | CP.PCM.PN ---
Subjective - Date & Time of Evaluation Date of Evaluation: 09/04/16 Time of Evaluation: 09:22 - Subjective Subjective: STILL WEAK NO CHEST PAINS COUGH LESS Objective - Vital Signs/Intake and Output Vital Signs (last 24 hours): Temp Pulse Resp BP Pulse Ox 98.1 F 88 20 126/68 98 09/04/16 08:37 09/04/16 09:03 09/04/16 08:37 09/04/16 09:03 09/04/16 08:37 Intake and Output: 09/04/16 09/04/16 06:59 18:59 Intake Total 50 Output Total 1250 Balance -1200 - Medications Medications: Current Medications Acetaminophen (Tylenol 325mg Tab) 650 mg PO Q4 PRN PRN Reason: MILD PAIN or Temp above 101 Acetylcysteine (Acetylcysteine 20%) 2 ml INH RBID [facility] Last Admin: 09/04/16 07:30 Dose: 2 ml Albuterol/Ipratropium (Duoneb 3 Mg/0.5 Mg (3 Ml) Ud) 3 ml INH RQID [facility] Last Admin: 09/04/16 07:30 Dose: 3 ml Bisacodyl (Dulcolax) 10 mg [place] Q72 PRN PRN Reason: NO BM AFTER 3 DAYS Collagenase (Santyl) 1 applic TOP DAILY [facility] Last Admin: 09/04/16 09:04 Dose: 1 applic Digoxin (Lanoxin) 0.125 mg PO DAILY [facility] Last Admin: 09/04/16 09:02 Dose: 0.125 mg Ergocalciferol (Drisdol 50,000 Intl Units Cap) 1 cap PO QWK [facility] Finasteride (Proscar) 5 mg PO DAILY [facility] Last Admin: 09/04/16 09:03 Dose: 5 mg Magnesium Hydroxide (Milk Of Magnesia) 30 ml PO HS PRN PRN Reason: CONSTIPATION Metoprolol Tartrate (Lopressor) 12.5 mg PO Q12 [facility] Last Admin: 09/04/16 09:03 Dose: 12.5 mg Midodrine (Proamatine) 2.5 mg PO TID [facility] Last Admin: 09/04/16 09:03 Dose: 2.5 mg Pantoprazole Sodium (Protonix Ec Tab) 40 mg PO DAILY [facility] Last Admin: 09/04/16 09:02 Dose: 40 mg Sennosides (Senokot Tab) 17.2 mg PO HS [facility] Last Admin: 09/03/16 22:04 Dose: 17.2 mg Sitagliptin Phosphate (Januvia) 50 mg PO DAILY [facility] Last Admin: 09/04/16 09:00 Dose: 50 mg Sucralfate (Carafate Oral Susp) 1 gm PO ACL [facility] Last Admin: 09/03/16 11:30 Dose: 1 gm Tamsulosin HCl (Flomax) 0.4 mg PO HS [facility] Last Admin: 09/03/16 22:04 Dose: 0.4 mg - Labs Labs: PT 26.9 SECONDS (9.6-11.2) H 09/01/16 21:04 INR 2.59 (0.92-1.08) H 09/01/16 21:04 - Constitutional Appears: Chronically Ill - Head Exam Head Exam: ATRAUMATIC, NORMAL INSPECTION, NORMOCEPHALIC - Eye Exam Eye Exam: EOMI, Normal appearance, PERRL Pupil Exam: NORMAL ACCOMODATION, PERRL - ENT Exam ENT Exam: Mucous Membranes Moist, Normal Exam - Neck Exam Neck Exam: Full ROM, Normal Inspection. absent: Lymphadenopathy - Respiratory Exam Respiratory Exam: Decreased Breath Sounds, Prolonged Expiratory Phase, NORMAL BREATHING PATTERN - Cardiovascular Exam Cardiovascular Exam: REGULAR RHYTHM, +S1, +S2. absent: Murmur - GI/Abdominal Exam GI & Abdominal Exam: Soft, Normal Bowel Sounds. absent: Tenderness - Rectal Exam Rectal Exam: NORMAL INSPECTION - Extremities Exam Extremities Exam: Full ROM, Normal Capillary Refill, Normal Inspection, Pedal Edema. absent: Joint Swelling - Back Exam Back Exam: NORMAL INSPECTION - Neurological Exam Neurological Exam: Alert, Awake, CN II-XII Intact, Normal Gait, Oriented x3 - Psychiatric Exam Psychiatric exam: Normal Affect, Normal Mood - Skin Skin Exam: Dry, Intact, Normal Color, Warm Assessment and Plan - Assessment and Plan (Free Text) Assessment: COPD EXAC CHF HEMATURIA IMPROVED ASHD A.FIB DM Plan: CONTINUE PRESENT RX D/C TO ASSISTED IN AM IF STABLE--PAL CARE PER 'S REQUEST
--- NOTE | 2016-09-04 09:26 | PQF GENQUE ---
Dr. Doll, (1)In agreement with BMI of 17.9: listed in the RD assessment? if yes: (2) please include the BMI in your progress note (3) any associated diagnosis(s): i.e Underweight etc. OR: Disagree OR: Other explanation of clinical findings 09/03/16: RD note; BMI 17.9; Underweight: Nursing referral for "poor appetite" with recommendation to physician :glucerna shake BID, multivitamin with minerals , monitor intake, labs, weight status This form is a permanent part of the medical record Clarification of your documentation is requested to better reflect the severity of illness and intensity of treatment of your patient. Indicators present [] Specify: [] [] Specify: [] [] Specify: [] [] Specify: [] Location in the medical record that reflects the above clinical findings: [] Treatment Provided: [] PHYSICIAN'S RESPONSE Based on your medical judgment of the clinical indicators outlined above please clarify the following: [] Practitioner response [] If unable to determine, please check the box, sign and date. Present On Admission (POA) Indicator: [] Present at the time of admission [] Not present at the time of admission [] Clinically Undetermined In responding to this query, please exercise your independent professional judgment. The fact that a question is asked does not imply that any particular answer is desired or expected. Thank you for your clarification on this documentation. If you have any questions please call. * Thank you, Tessa Landaverde RN BSN ext. #[phone] MTDD
--- NOTE | 2016-09-04 10:07 | CP.PCM.PN ---
Subjective - Date & Time of Evaluation Date of Evaluation: 09/04/16 Time of Evaluation: 07:30 - Subjective Subjective: NO CHEST PAIN OR SOB FEELS TIRED Objective - Vital Signs/Intake and Output Vital Signs (last 24 hours): Temp Pulse Resp BP Pulse Ox 98.1 F 88 20 126/68 98 09/04/16 08:37 09/04/16 09:03 09/04/16 08:37 09/04/16 09:03 09/04/16 08:37 Intake and Output: 09/04/16 09/04/16 06:59 18:59 Intake Total 50 Output Total 1250 Balance -1200 - Medications Medications: Current Medications Acetaminophen (Tylenol 325mg Tab) 650 mg PO Q4 PRN PRN Reason: MILD PAIN or Temp above 101 Acetylcysteine (Acetylcysteine 20%) 2 ml INH RBID [facility] Last Admin: 09/04/16 07:30 Dose: 2 ml Albuterol/Ipratropium (Duoneb 3 Mg/0.5 Mg (3 Ml) Ud) 3 ml INH RQID [facility] Last Admin: 09/04/16 07:30 Dose: 3 ml Bisacodyl (Dulcolax) 10 mg [place] Q72 PRN PRN Reason: NO BM AFTER 3 DAYS Collagenase (Santyl) 1 applic TOP DAILY [facility] Last Admin: 09/04/16 09:04 Dose: 1 applic Digoxin (Lanoxin) 0.125 mg PO DAILY [facility] Last Admin: 09/04/16 09:02 Dose: 0.125 mg Ergocalciferol (Drisdol 50,000 Intl Units Cap) 1 cap PO QWK [facility] Finasteride (Proscar) 5 mg PO DAILY [facility] Last Admin: 09/04/16 09:03 Dose: 5 mg Magnesium Hydroxide (Milk Of Magnesia) 30 ml PO HS PRN PRN Reason: CONSTIPATION Metoprolol Tartrate (Lopressor) 12.5 mg PO Q12 [facility] Last Admin: 09/04/16 09:03 Dose: 12.5 mg Midodrine (Proamatine) 2.5 mg PO TID [facility] Last Admin: 09/04/16 09:03 Dose: 2.5 mg Pantoprazole Sodium (Protonix Ec Tab) 40 mg PO DAILY [facility] Last Admin: 09/04/16 09:02 Dose: 40 mg Sennosides (Senokot Tab) 17.2 mg PO HS [facility] Last Admin: 09/03/16 22:04 Dose: 17.2 mg Sitagliptin Phosphate (Januvia) 50 mg PO DAILY [facility] Last Admin: 09/04/16 09:00 Dose: 50 mg Sucralfate (Carafate Oral Susp) 1 gm PO ACL [facility] Last Admin: 09/03/16 11:30 Dose: 1 gm Tamsulosin HCl (Flomax) 0.4 mg PO HS [facility] Last Admin: 09/03/16 22:04 Dose: 0.4 mg - Labs Labs: PT 26.9 SECONDS (9.6-11.2) H 09/01/16 21:04 INR 2.59 (0.92-1.08) H 09/01/16 21:04 - Respiratory Exam Respiratory Exam: Decreased Breath Sounds - Cardiovascular Exam Cardiovascular Exam: Irregular Rhythm, +S1, +S2 - Extremities Exam Extremities Exam: Pedal Edema Assessment and Plan - Assessment and Plan (Free Text) Assessment: CARDIAC AMYLOID ATRIAL FLUTTRER COPD RECENT PE DIVISION HEAD PROGNOSIS IS POOR Plan: CONTINUE DIGOXIN AND METOPROLOL DIGOXIN LEVEL IN AM THE PATIENT'S DOESN'T WANT ANY NEW INITIATIVES-HE IS A DNR AND WILL BE DISCHARGED TO PROBABLE HOSPICE CARE
[2016-09-04] MEDS: Sucralfate 1 gm/10 ml Oral Susp UD PO SCH (12:25)
--- NOTE | 2016-09-04 12:56 | IP.NPCORE ---
Heart Failure Core Measure - Heart Failure Ejection Fraction: Less Than 40 % Left Ventricular Function to be assessed after discharge: Yes WALI Inhibitor Prescribed: No Contraindication/Reason for not providing: N/a Beta-Cristela Prescribed: Metoprolol Succinate Angiotensin II Receptor Cristela Prescribed: No Contraindication/Reason for not providing: N/A AnticoagulationTherapy for Atrial Fibrillation/Atrialflutter: No Contraindication/Reason for not providing: Pt on digoxin Aldosterone Antagonist Prescribed: No Contraindication/Reason for not providing: N/a Hydralazine Nitrate Prescribed: No Contraindication/Reason for not providing: N/a Implantable Cardioverter Defibrillator Therapy: No Contraindication/Reason for not providing: N/a Cardiac Resynchronization Therapy Prescribed: No Contraindication/Reason for not providing: N/a - Follow up Will be discharged to: [facility] Follow Up Date (must be within 7 days from discharge): 09/08/16 Follow Up Time: 09:00
--- NOTE | 2016-09-04 18:45 | CP.PCM.PN ---
Subjective - Date & Time of Evaluation Date of Evaluation: 09/04/16 Time of Evaluation: 18:42 - Subjective Subjective: UROLOGY Spoke with nursing today urine now clear x 24 hrs. Will stop CBI at this time and tomorrow thursday 6AM will D/C rodriguez completely Objective - Vital Signs/Intake and Output Vital Signs (last 24 hours): Temp Pulse Resp BP Pulse Ox 97.6 F 85 18 102/65 100 09/04/16 17:18 09/04/16 17:18 09/04/16 17:18 09/04/16 17:18 09/04/16 17:18 Intake and Output: 09/04/16 09/04/16 06:59 18:59 Intake Total 50 Output Total 1250 Balance -1200 - Medications Medications: Current Medications Acetaminophen (Tylenol 325mg Tab) 650 mg PO Q4 PRN PRN Reason: MILD PAIN or Temp above 101 Acetylcysteine (Acetylcysteine 20%) 2 ml INH RBID [facility] Last Admin: 09/04/16 07:30 Dose: 2 ml Albuterol/Ipratropium (Duoneb 3 Mg/0.5 Mg (3 Ml) Ud) 3 ml INH RQID [facility] Last Admin: 09/04/16 15:53 Dose: 3 ml Bisacodyl (Dulcolax) 10 mg [place] Q72 PRN PRN Reason: NO BM AFTER 3 DAYS Collagenase (Santyl) 1 applic TOP DAILY [facility] Last Admin: 09/04/16 09:04 Dose: 1 applic Digoxin (Lanoxin) 0.125 mg PO DAILY [facility] Last Admin: 09/04/16 09:02 Dose: 0.125 mg Ergocalciferol (Drisdol 50,000 Intl Units Cap) 1 cap PO QWK [facility] Finasteride (Proscar) 5 mg PO DAILY [facility] Last Admin: 09/04/16 09:03 Dose: 5 mg Magnesium Hydroxide (Milk Of Magnesia) 30 ml PO HS PRN PRN Reason: CONSTIPATION Metoprolol Tartrate (Lopressor) 12.5 mg PO Q12 [facility] Last Admin: 09/04/16 09:03 Dose: 12.5 mg Midodrine (Proamatine) 2.5 mg PO TID [facility] Last Admin: 09/04/16 16:24 Dose: 2.5 mg Pantoprazole Sodium (Protonix Ec Tab) 40 mg PO DAILY [facility] Last Admin: 09/04/16 09:02 Dose: 40 mg Sennosides (Senokot Tab) 17.2 mg PO HS [facility] Last Admin: 09/03/16 22:04 Dose: 17.2 mg Sitagliptin Phosphate (Januvia) 50 mg PO DAILY [facility] Last Admin: 09/04/16 09:00 Dose: 50 mg Sucralfate (Carafate Oral Susp) 1 gm PO ACL [facility] Last Admin: 09/04/16 12:25 Dose: 1 gm Tamsulosin HCl (Flomax) 0.4 mg PO HS [facility] Last Admin: 09/03/16 22:04 Dose: 0.4 mg - Labs Labs: PT 26.9 SECONDS (9.6-11.2) H 09/01/16 21:04 INR 2.59 (0.92-1.08) H 09/01/16 21:04
[2016-09-05] MEDS: Albuterol-Ipratrop 3 mg / 0.5 (3 ml) UD INH SCH ×4 (07:13→20:38)
[2016-09-05] MEDS: Acetylcysteine 20% Inhal Soln (4ml) INH SCH ×2 (07:13→20:37)
[2016-09-05] MEDS: Digoxin 125 mcg (0.125 mg) Tab PO SCH (09:14)
[2016-09-05] MEDS: Santyl Collagenase OINTMENT TOP SCH (09:15)
[2016-09-05] MEDS: Pantoprazole 40 mg EC Tab PO SCH (09:15)
[2016-09-05 09:31] VITALS: RESP 20
--- NOTE | 2016-09-05 10:54 | CP.PCM.PN ---
Subjective - Date & Time of Evaluation Date of Evaluation: 09/05/16 Time of Evaluation: 08:30 - Subjective Subjective: NO CHEST PAIN OR SOB Objective - Vital Signs/Intake and Output Vital Signs (last 24 hours): Temp Pulse Resp BP Pulse Ox 97.7 F 54 L 20 94/60 L 98 09/05/16 09:00 09/05/16 09:00 09/05/16 09:00 09/05/16 09:00 09/05/16 09:00 Intake and Output: 09/05/16 09/05/16 06:59 18:59 Intake Total 100 Output Total 350 Balance -250 - Medications Medications: Current Medications Acetaminophen (Tylenol 325mg Tab) 650 mg PO Q4 PRN PRN Reason: MILD PAIN or Temp above 101 Acetylcysteine (Acetylcysteine 20%) 2 ml INH RBID [facility] Last Admin: 09/05/16 07:13 Dose: 2 ml Albuterol/Ipratropium (Duoneb 3 Mg/0.5 Mg (3 Ml) Ud) 3 ml INH RQID [facility] Last Admin: 09/05/16 07:13 Dose: 3 ml Bisacodyl (Dulcolax) 10 mg [place] Q72 PRN PRN Reason: NO BM AFTER 3 DAYS Collagenase (Santyl) 1 applic TOP DAILY [facility] Last Admin: 09/05/16 09:15 Dose: Not Given Digoxin (Lanoxin) 0.125 mg PO DAILY [facility] Last Admin: 09/05/16 09:14 Dose: 0.125 mg Ergocalciferol (Drisdol 50,000 Intl Units Cap) 1 cap PO QWK [facility] Finasteride (Proscar) 5 mg PO DAILY [facility] Last Admin: 09/05/16 09:15 Dose: 5 mg Magnesium Hydroxide (Milk Of Magnesia) 30 ml PO HS PRN PRN Reason: CONSTIPATION Metoprolol Tartrate (Lopressor) 12.5 mg PO Q12 [facility] Last Admin: 09/05/16 09:14 Dose: 12.5 mg Midodrine (Proamatine) 2.5 mg PO TID [facility] Last Admin: 09/05/16 09:15 Dose: 2.5 mg Pantoprazole Sodium (Protonix Ec Tab) 40 mg PO DAILY [facility] Last Admin: 09/05/16 09:15 Dose: 40 mg Sennosides (Senokot Tab) 17.2 mg PO HS [facility] Last Admin: 09/04/16 21:45 Dose: 17.2 mg Sitagliptin Phosphate (Januvia) 50 mg PO DAILY [facility] Last Admin: 09/05/16 09:15 Dose: 50 mg Sucralfate (Carafate Oral Susp) 1 gm PO ACL [facility] Last Admin: 09/04/16 12:25 Dose: 1 gm Tamsulosin HCl (Flomax) 0.4 mg PO HS [facility] Last Admin: 09/04/16 21:45 Dose: 0.4 mg - Labs Labs: PT 26.9 SECONDS (9.6-11.2) H 09/01/16 21:04 INR 2.59 (0.92-1.08) H 09/01/16 21:04 - Respiratory Exam Respiratory Exam: Decreased Breath Sounds - Cardiovascular Exam Cardiovascular Exam: Irregular Rhythm, +S1, +S2 - Extremities Exam Extremities Exam: Pedal Edema - Additional Findings Additional findings: DIGOXIN LEVEL 1.5 UROLOGY NOTE SEEN AND OWENS DISCONTINUED Assessment and Plan - Assessment and Plan (Free Text) Assessment: ATRIAL FLUTTER AMYLOID HEART COPD Plan: CONTINUE METOPROLOL AND DIGOXIN
[2016-09-05] MEDS: Sucralfate 1 gm/10 ml Oral Susp UD PO SCH (12:14)
--- NOTE | 2016-09-05 14:14 | CP.PCM.PN ---
Subjective - Date & Time of Evaluation Date of Evaluation: 09/05/16 Time of Evaluation: 14:14 - Subjective Subjective: MORE AWAKE OWENS REMOVED STILL HAS NOT VOIDED Objective - Vital Signs/Intake and Output Vital Signs (last 24 hours): Temp Pulse Resp BP Pulse Ox 97.7 F 54 L 20 94/60 L 98 09/05/16 09:00 09/05/16 09:00 09/05/16 09:00 09/05/16 09:00 09/05/16 09:00 Intake and Output: 09/05/16 09/05/16 06:59 18:59 Intake Total 100 Output Total 350 Balance -250 - Medications Medications: Current Medications Acetaminophen (Tylenol 325mg Tab) 650 mg PO Q4 PRN PRN Reason: MILD PAIN or Temp above 101 Acetylcysteine (Acetylcysteine 20%) 2 ml INH RBID [facility] Last Admin: 09/05/16 07:13 Dose: 2 ml Albuterol/Ipratropium (Duoneb 3 Mg/0.5 Mg (3 Ml) Ud) 3 ml INH RQID [facility] Last Admin: 09/05/16 11:00 Dose: 3 ml Bisacodyl (Dulcolax) 10 mg [place] Q72 PRN PRN Reason: NO BM AFTER 3 DAYS Collagenase (Santyl) 1 applic TOP DAILY [facility] Last Admin: 09/05/16 09:15 Dose: Not Given Digoxin (Lanoxin) 0.125 mg PO DAILY [facility] Last Admin: 09/05/16 09:14 Dose: 0.125 mg Ergocalciferol (Drisdol 50,000 Intl Units Cap) 1 cap PO QWK [facility] Finasteride (Proscar) 5 mg PO DAILY [facility] Last Admin: 09/05/16 09:15 Dose: 5 mg Magnesium Hydroxide (Milk Of Magnesia) 30 ml PO HS PRN PRN Reason: CONSTIPATION Metoprolol Tartrate (Lopressor) 12.5 mg PO Q12 [facility] Last Admin: 09/05/16 09:14 Dose: 12.5 mg Midodrine (Proamatine) 2.5 mg PO TID [facility] Last Admin: 09/05/16 12:14 Dose: 2.5 mg Pantoprazole Sodium (Protonix Ec Tab) 40 mg PO DAILY [facility] Last Admin: 09/05/16 09:15 Dose: 40 mg Sennosides (Senokot Tab) 17.2 mg PO HS [facility] Last Admin: 09/04/16 21:45 Dose: 17.2 mg Sitagliptin Phosphate (Januvia) 50 mg PO DAILY [facility] Last Admin: 09/05/16 09:15 Dose: 50 mg Sucralfate (Carafate Oral Susp) 1 gm PO ACL [facility] Last Admin: 09/05/16 12:14 Dose: 1 gm Tamsulosin HCl (Flomax) 0.4 mg PO HS [facility] Last Admin: 09/04/16 21:45 Dose: 0.4 mg - Labs Labs: PT 26.9 SECONDS (9.6-11.2) H 09/01/16 21:04 INR 2.59 (0.92-1.08) H 09/01/16 21:04 - Constitutional Appears: Well - Head Exam Head Exam: ATRAUMATIC, NORMAL INSPECTION, NORMOCEPHALIC - Eye Exam Eye Exam: EOMI, Normal appearance, PERRL Pupil Exam: NORMAL ACCOMODATION, PERRL - ENT Exam ENT Exam: Mucous Membranes Moist, Normal Exam - Neck Exam Neck Exam: Full ROM, Normal Inspection. absent: Lymphadenopathy - Respiratory Exam Respiratory Exam: Decreased Breath Sounds, Prolonged Expiratory Phase, NORMAL BREATHING PATTERN - Cardiovascular Exam Cardiovascular Exam: Irregular Rhythm, +S1, +S2. absent: Murmur - GI/Abdominal Exam GI & Abdominal Exam: Soft, Normal Bowel Sounds. absent: Tenderness - Rectal Exam Rectal Exam: NORMAL INSPECTION - Extremities Exam Extremities Exam: Full ROM, Normal Capillary Refill, Normal Inspection, Pedal Edema. absent: Joint Swelling - Back Exam Back Exam: NORMAL INSPECTION - Neurological Exam Neurological Exam: Alert, Awake, CN II-XII Intact, Normal Gait, Oriented x3 - Psychiatric Exam Psychiatric exam: Normal Affect, Normal Mood - Skin Skin Exam: Dry, Intact, Normal Color, Warm Assessment and Plan - Assessment and Plan (Free Text) Assessment: PNEUMONIA CHF A,FIB HEMATURIA Plan: HOLD DISCHARGE TODAY D/C IN AM IF PT VOIDS
--- NOTE | 2016-09-05 17:05 | US ---
Indication: Postvoid residual Pelvis ultrasound Comparison: None available Findings: Prevoid urinary bladder measures approximately 8.2 x 5.9 x 7.1 cm, calculated volume 177.3 mL. Patient was unable to void. Ureteral jets were not demonstrated on the provided views. Impression: Prevoid urinary bladder 177.3 mL. The patient was unable to void.
[2016-09-06] MEDS: Acetylcysteine 20% Inhal Soln (4ml) INH SCH (07:23)
[2016-09-06] MEDS: Albuterol-Ipratrop 3 mg / 0.5 (3 ml) UD INH SCH (07:23)
--- NOTE | 2016-09-06 07:41 | CP.PCM.PCO ---
Physician Communication Note - Physician Communication Note Physician Communication Note: Attempted to see pt, pt voiding, will come back in pm
--- NOTE | 2016-09-06 08:39 | CP.PCM.DIS ---
Provider - Provider Date of Admission: 09/01/16 22:16 Attending physician: Yevgeniy Lora MD Primary care physician: Yevgeniy Lora MD Time Spent in preparation of Discharge (in minutes): 30 Diagnosis - Discharge Diagnosis (1) Arrhythmia Status: Acute (2) Arthritis Status: Acute (3) Diabetes Status: Acute (4) Hypertension Status: Acute (5) Rapid atrial fibrillation Status: Acute (6) S/P hip replacement Status: Acute (7) Amyloid heart disease Status: Acute (8) CHF (congestive heart failure) Status: Acute (9) CHF exacerbation Status: Acute (10) COPD (chronic obstructive pulmonary disease) Status: Acute (11) COPD exacerbation Status: Acute (12) Cellulitis Status: Acute (13) Elevated troponin Status: Acute (14) Pulmonary embolism Status: Acute (15) Renal insufficiency Status: Acute Hospital Course - Lab Results Lab Results: Micro Results 09/02/16 18:00 Leg - Right Gram Stain - Final 09/02/16 18:00 Leg - Right Wound Culture - Final No growth. 09/03/16 10:35 Nose MRSA Culture (Admit) - Final MRSA NOT DETECTED 09/01/16 22:45 Urine,Catheterized Urine Culture - Final No Growth (<1,000 CFU/ML) 09/02/16 10:01 Naris MRSA Culture (Admit) - Final MRSA NOT DETECTED Most Recent Lab Values WBC 7.1 K/uL (4.8-10.8) 09/01/16 21:00 RBC 5.48 Mil/uL (4.40-5.90) 09/01/16 21:00 Hgb 13.9 g/dL (12.0-18.0) 09/01/16 21:00 Hct 43.9 % (35.0-51.0) 09/01/16 21:00 MCV 80.0 fl (80.0-94.0) 09/01/16 21:00 MCH 25.4 pg (27.0-31.0) L 09/01/16 21:00 MCHC 31.8 g/dL (33.0-37.0) L 09/01/16 21:00 RDW 22.0 % (11.5-14.5) H 09/01/16 21:00 Plt Count 156 K/uL (130-400) 09/01/16 21:00 MPV 7.9 fl (7.2-11.7) 09/01/16 21:00 Neut % (Auto) 75.6 % (50.0-75.0) H 09/01/16 21:00 Lymph % (Auto) 14.4 % (20.0-40.0) L 09/01/16 21:00 [place] % (Auto) 7.3 % (0.0-10.0) 09/01/16 21:00 Eos % (Auto) 1.2 % (0.0-4.0) 09/01/16 21:00 Baso % (Auto) 1.5 % (0.0-2.0) 09/01/16 21:00 Neut # 5.4 K/uL (1.8-7.0) 09/01/16 21:00 Lymph # 1.0 K/uL (1.0-4.3) 09/01/16 21:00 [place] # 0.5 K/uL (0.0-0.8) 09/01/16 21:00 Eos # 0.1 K/uL (0.0-0.7) 09/01/16 21:00 Baso # 0.1 K/uL (0.0-0.2) 09/01/16 21:00 PT 26.9 SECONDS (9.6-11.2) H 09/01/16 21:04 INR 2.59 (0.92-1.08) H 09/01/16 21:04 Sodium 133 mmol/l (132-148) 09/01/16 21:00 Potassium 4.8 MMOL/L (3.6-5.0) 09/01/16 21:00 Chloride 99 mmol/L (98-107) 09/01/16 21:00 Carbon Dioxide 26 mmol/L (22-30) 09/01/16 21:00 Anion Gap 12 (10-20) 09/01/16 21:00 BUN 60 mg/dl (9-20) H 09/01/16 21:00 Creatinine 1.4 mg/dL (0.8-1.5) 09/01/16 21:00 Est GFR ( Amer) 59 09/01/16 21:00 Est GFR (Non-Af Amer) 48 09/01/16 21:00 POC Glucose (mg/dL) 130 mg/dL (65-110) H 09/03/16 11:10 Random Glucose 160 mg/dL (75-110) H 09/01/16 21:00 Calcium 8.8 mg/dL (8.4-10.2) 09/01/16 21:00 Total Bilirubin 2.7 mg/dl (0.2-1.3) H 09/01/16 21:00 AST 27 U/L (17-59) 09/01/16 21:00 ALT 37 U/L (21-72) 09/01/16 21:00 Alkaline Phosphatase 203 U/L (38-126) H 09/01/16 21:00 Troponin I 0.1990 ng/mL (0.00-0.120) H* 09/02/16 16:30 NT-Pro-B Natriuret Pep 59332 pg/ml (0-900) H 09/01/16 21:00 Total Protein 6.5 G/DL (6.3-8.2) 09/01/16 21:00 Albumin 3.0 g/dL (3.5-5.0) L 09/01/16 21:00 Globulin 3.5 gm/dL (2.2-3.9) 09/01/16 21:00 Albumin/Globulin Ratio 0.9 (1.0-2.1) L 09/01/16 21:00 Urine Color (YELLOW) 09/01/16 22:45 Urine Clarity Clear (Clear) 09/01/16 22:45 Urine pH 6.0 (5.0-8.0) 09/01/16 22:45 Ur Specific [place] 1.016 (1.003-1.030) 09/01/16 22:45 Urine Protein Negative mg/dL (NEGATIVE) 09/01/16 22:45 Urine Glucose (UA) Neg mg/dL (Normal) 09/01/16 22:45 Urine Ketones Negative mg/dL (NEGATIVE) 09/01/16 22:45 Urine Blood Negative (NEGATIVE) 09/01/16 22:45 Urine Nitrate Negative (NEGATIVE) 09/01/16 22:45 Urine Bilirubin Negative (NEGATIVE) 09/01/16 22:45 Urine Urobilinogen 0.2-1.0 mg/dL (0.2-1.0) 09/01/16 22:45 Ur Leukocyte Esterase Neg [place]/uL (Negative) 09/01/16 22:45 Urine RBC (Auto) < 1 /hpf (0-3) 09/01/16 22:45 Urine Microscopic WBC 2 /hpf (0-5) 09/01/16 22:45 Ur Squamous Epith Cells < 1 /hpf (0-5) 09/01/16 22:45 Urine Bacteria Few (<OCC) H 09/01/16 22:45 Hyaline Casts 6-10 /hpf (0-2) H 09/01/16 22:45 Digoxin 1.5 ng/mL (0.8-2.0) 09/05/16 05:45 Blood Type A POSITIVE 09/02/16 13:13 Antibody Screen Negative 09/02/16 13:13 BBK History Checked Patient has bt 09/02/16 13:13 - Hospital Course Hospital Course: more awake and alert clinically improved no shortness of breath pedal edema improved Discharge Exam - Head Exam Head Exam: ATRAUMATIC, NORMAL INSPECTION, NORMOCEPHALIC - Eye Exam Eye Exam: EOMI, Normal appearance, PERRL Pupil Exam: NORMAL ACCOMODATION, PERRL - Cardiovascular Exam Cardiovascular Exam: Irregular Rhythm - GI/Abdominal Exam GI & Abdominal Exam: Normal Bowel Sounds - Rectal Exam Rectal Exam: NORMAL INSPECTION - Extremities Exam Extremities exam: pedal edema - Neurological Exam Neurological exam: Abnormal Gait, Alert, CN II-XII Intact, Oriented x3, Reflexes Normal - Psychiatric Exam Psychiatric exam: Flat Affect - Skin Skin Exam: Dry, Intact, Warm Additional comments: chronic stasis changes of legs Discharge Plan - Follow Up Plan Condition: STABLE Disposition: HOME/ ROUTINE Referrals: Yevgeniy Lora MD [Primary Care Provider] -
[2016-09-06 08:53] VITALS: BP 93/59; PULSE 87; TEMP 97.5; O2SAT 93
[2016-09-06] MEDS: Pantoprazole 40 mg EC Tab PO SCH (09:11)
[2016-09-06] MEDS: Digoxin 125 mcg (0.125 mg) Tab PO SCH (09:11)
[2016-09-06 09:12] VITALS: PULSE 87
[2016-09-06] MEDS: Santyl Collagenase OINTMENT TOP SCH (09:12)
--- NOTE | 2016-09-06 09:27 | CP.PCM.PN ---
Subjective - Date & Time of Evaluation Date of Evaluation: 09/06/16 Time of Evaluation: 09:26 - Subjective Subjective: UROLOGY. Pt now 24 hrs voiding cath free. e is urlogically ok for disch Objective - Vital Signs/Intake and Output Vital Signs (last 24 hours): Temp Pulse Resp BP Pulse Ox 97.5 F L 87 20 93/59 L 93 L 09/06/16 08:53 09/06/16 08:53 09/06/16 08:53 09/06/16 08:53 09/06/16 08:53 Intake and Output: 09/06/16 09/06/16 06:59 18:59 Intake Total 180 Output Total 200 Balance -20 - Medications Medications: Current Medications Acetaminophen (Tylenol 325mg Tab) 650 mg PO Q4 PRN PRN Reason: MILD PAIN or Temp above 101 Acetylcysteine (Acetylcysteine 20%) 2 ml INH RBID [facility] Last Admin: 09/06/16 07:23 Dose: Not Given Albuterol/Ipratropium (Duoneb 3 Mg/0.5 Mg (3 Ml) Ud) 3 ml INH RQID [facility] Last Admin: 09/06/16 07:23 Dose: 3 ml Bisacodyl (Dulcolax) 10 mg [place] Q72 PRN PRN Reason: NO BM AFTER 3 DAYS Collagenase (Santyl) 1 applic TOP DAILY [facility] Last Admin: 09/06/16 09:12 Dose: Not Given Digoxin (Lanoxin) 0.125 mg PO DAILY [facility] Last Admin: 09/06/16 09:11 Dose: 0.125 mg Ergocalciferol (Drisdol 50,000 Intl Units Cap) 1 cap PO QWK [facility] Finasteride (Proscar) 5 mg PO DAILY [facility] Last Admin: 09/06/16 09:11 Dose: 5 mg Magnesium Hydroxide (Milk Of Magnesia) 30 ml PO HS PRN PRN Reason: CONSTIPATION Metoprolol Tartrate (Lopressor) 12.5 mg PO Q12 [facility] Last Admin: 09/06/16 09:12 Dose: Not Given Midodrine (Proamatine) 2.5 mg PO TID [facility] Last Admin: 09/06/16 09:11 Dose: 2.5 mg Pantoprazole Sodium (Protonix Ec Tab) 40 mg PO DAILY [facility] Last Admin: 09/06/16 09:11 Dose: 40 mg Sennosides (Senokot Tab) 17.2 mg PO HS [facility] Last Admin: 09/05/16 22:39 Dose: 17.2 mg Sitagliptin Phosphate (Januvia) 50 mg PO DAILY [facility] Last Admin: 09/06/16 09:11 Dose: 50 mg Sucralfate (Carafate Oral Susp) 1 gm PO ACL [facility] Last Admin: 09/05/16 12:14 Dose: 1 gm Tamsulosin HCl (Flomax) 0.4 mg PO HS [facility] Last Admin: 09/05/16 22:39 Dose: 0.4 mg - Labs Labs: PT 26.9 SECONDS (9.6-11.2) H 09/01/16 21:04 INR 2.59 (0.92-1.08) H 09/01/16 21:04
== END 2016-09-06 11:25 | DRG 308 ==
LOC: H.ER 19:00 → H.ERHOLD 22:16 → H.ICU/CCU 09-02 03:29 → H.MEDSURG1 09-03 10:52
PROVIDERS: ADMIT Internal Medicine Pulmonary Disease; ATTEND Internal Medicine Pulmonary Disease
PROC: 30233K1 Transfusion of Nonautologous Frozen Plasma into Peripheral Vein, Percutaneous Approach (ICD-10-PCS; principal; 2016-09-02)
DX: I48.2 Chronic atrial fibrillation (principal); I50.43 Acute on chronic combined systolic (congestive) and diastolic (congestive) heart failure; L89.151 Pressure ulcer of sacral region, stage 1; J18.9 Pneumonia, unspecified organism; I43 Cardiomyopathy in diseases classified elsewhere; E85.4 Organ-limited amyloidosis; I11.0 Hypertensive heart disease with heart failure; E11.622 Type 2 diabetes mellitus with other skin ulcer; L03.115 Cellulitis of right lower limb; J44.1 Chronic obstructive pulmonary disease with (acute) exacerbation; L03.116 Cellulitis of left lower limb; L97.919 Non-pressure chronic ulcer of unspecified part of right lower leg with unspecified severity; L97.929 Non-pressure chronic ulcer of unspecified part of left lower leg with unspecified severity; L97.819 Non-pressure chronic ulcer of other part of right lower leg with unspecified severity; E11.65 Type 2 diabetes mellitus with hyperglycemia; Z86.711 Personal history of pulmonary embolism; Z79.01 Long term (current) use of anticoagulants; Z51.5 Encounter for palliative care; R31.0 Gross hematuria; Z96.643 Presence of artificial hip joint, bilateral; Z87.891 Personal history of nicotine dependence; K21.9 Gastro-esophageal reflux disease without esophagitis; K59.00 Constipation, unspecified; Z96.651 Presence of right artificial knee joint; I83.019 Varicose veins of right lower extremity with ulcer of unspecified site; I83.029 Varicose veins of left lower extremity with ulcer of unspecified site; Z66 Do not resuscitate; I48.92 Unspecified atrial flutter; N40.0 Benign prostatic hyperplasia without lower urinary tract symptoms